=== PATIENT | female | born 1965 | race Caucasian/White ===

== ENCOUNTER 2017-01-17 11:22 | Emergency (ER) | payer BC ==
[~2017-01-17] VITALS: Ht 185.4 cm; Wt 91.4 kg
[~2017-01-17 11:22] MED LIST: ASPIRIN EC325 MG PO; BONINE25 MG PO; CIPRO500 MG PO; DOXYCYCLINE HY100 MG PO; LORTAB 5-325 M1 EACH PO; NAPROSYN500 MG PO
[2017-01-17 12:11] LABS: HEMATOCRIT 44.2 % (36.0-46.0); MCH 29.2 PG (29.0-34.0); MCHC 33.5 G/DL (30.0-36.0); MCV 87.2 FL (83-99); MEAN PLAT.VOLUME 10.9 uM^3 (9.5-12.4); PLATELET COUNT 254 K/uL (156-360); RBC DIS.WIDTH-CV 12.2 % (11.8-14.6); RBC DIS.WIDTH-SD 38.9 % (39-53); RED BLOOD COUNT 5.07 M/uL (3.80-5.20); WHITE BLOOD COUNT 7.5 K/uL (4.1-10.2)
[2017-01-17 12:18] LABS: CHLORIDE 105 mEq/L (99-109); POTASSIUM 4.1 mEq/L (3.7-5.4); SODIUM 139 mEq/L (136-147)
[2017-01-17 12:21] LABS: D-DIMER ELISA 0.26 mg/L FEU (< 0.57)
[2017-01-17 12:21] LABS: GLUCOSE 358 mg/dL (70-99)
[2017-01-17 12:22] LABS: ANION GAP 12 MEQ/L (2-14)
[2017-01-17 12:23] LABS: TOTAL BILIRUBIN 0.3 mg/dL (0.0-1.0)
[2017-01-17 12:24] LABS: ALKALINE PHOSPHATASE 73 IU/L (3-129); GFR ESTIMATE (CALCULATED) > 59 mL/min/
[2017-01-17 12:25] LABS: UREA NITROGEN (BUN) 17 mg/dL (9-23)
[2017-01-17 12:28] LABS: LIPASE 26 U/L (1.0-51.0)
[2017-01-17 12:30] LABS: TROP-I INTERPRETATION NEGATIVE; TROPONIN-I < 0.01 ng/mL (0.0-0.30)
[2017-01-17 12:37] LABS: QUANTITATIVE HCG < 4.0 MIU/ML
[2017-01-17 12:47] LABS: ADD MIUA? YES; BILIRUBIN NEGATIVE; BLOOD NEGATIVE; COLOR YELLOW ((YELLOW)); GLUCOSE (STRIP) >=500; KETONES 5; LEUKOCYTES MODERATE; NITRITE NEGATIVE; PROTEIN (STRIP) NEGATIVE; SPECIFIC GRAVITY 1.036 (1.000-1.030); UROBILINOGEN 0.2 MG/DL (0.2-1.0)
[2017-01-17 13:00] LABS: BACTERIA RARE /HPF; EPITHELIAL CELLS 1+ /HPF; MUCUS NONE SEEN /LPF; RED BLOOD CELLS 0-5 /HPF (0-5); WHITE BLOOD CELLS 15-20 /HPF (0-5)
[2017-01-17] MEDS ORDERED: CIPRO500 MG PO (13:35)
[2017-01-17] MEDS ORDERED: BACTRIM,SEPT1 TABLET PO (13:44)
[2017-01-17 14:06] VITALS: BP 131/87
== END 2017-01-17 14:07 | disposition home or self-care (01) ==
LOC: EME 11:22
PROVIDERS: Nurse Practitioner Family
DX: N39.0 Urinary tract infection, site not specified (principal); R10.9 Unspecified abdominal pain; J44.9 Chronic obstructive pulmonary disease, unspecified; E11.9 Type 2 diabetes mellitus without complications; F17.200 Nicotine dependence, unspecified, uncomplicated
CPT/HCPCS: 71020; 74176; 80053; 81003; 83690; 84484; 84702; 85027; 85379; 93005; 99281; 99284